=== PATIENT | male | born 1980 | race Caucasian/White ===

== ENCOUNTER → 2018-09-14 | Outpatient (CLI) | payer SELFPAY ==
--- NOTE | 2018-09-14 11:55 | CONS ---
CONSULTATION DATE OF SERVICE: 09/14/2018 A 38-year-old gentleman has been evaluated in sleep center for possible obstructive sleep apnea-hypopnea syndrome. HISTORY OF PRESENT ILLNESS/SLEEP-WAKE EVALUATION: Patient usual sleep schedule basically 7 days a week from midnight until 8 a.m. No problems with falling asleep. No TV in bedroom. Patient usually sleeps on the side position with his with very loud snoring, witnessed episodes of stopped breathing during the sleep and multiple awakenings from sleep around 8 times with 8 episodes of nocturia, dry mouth, sweating, heartburn. In the morning, patient wakes up tired, has difficulties to pay attention, falling asleep during the day, has problems with memory, concentration, irritability, depression, anxiety, sexual dysfunction. [place] Sleepiness Scale significantly increased to 16. No history of hypnagogic hallucinations, sleep paralysis or cataplexy. PAST MEDICAL HISTORY: Positive for hypertension, cardiac arrhythmia during stress test, depression, diabetes mellitus, sinus problems. PAST SURGICAL HISTORY: Sinus surgery in 2000. MEDICATIONS: Tenormin, amlodipine, benazepril, Wellbutrin, Janumet XR. SOCIAL HISTORY: Negative for smoking. Alcohol consumption rarely. FAMILY HISTORY: Hypertension, heart problems, arthritis, asthma, sinus problems, bronchitis, sleep apnea, snoring, headaches, narcolepsy, diabetes, nasal polyps, during sleep, mental illness. REVIEW OF SYSTEMS: Multiple awakenings from sleep, significant excessive daytime sleepiness. PHYSICAL EXAMINATION: During physical exam, gentleman without distress. VITAL SIGNS: BP 188/82, HR 90, RR 20, height 6 feet and 1/2 inch, weight 459 pounds, body mass index 61.3, temperature 98.1, oxygen saturation at room air 98%. HEENT: PERRLA, EOMI. Oropharynx extremely low position of soft palate. Mallampati 4. NECK: Wide neck 23-1/2 inches in circumference. LUNGS:Clear to percussion and to auscultation. Good air exchange. No wheezing or rhonchi. HEART: S1, S2 regular. No murmurs, gallops, or rubs. ABDOMEN: Obese. EXTREMITIES: No clubbing or cyanosis. [employer]: Awake, alert, and oriented X3. Cranial nerves 2 to 7 intact. There is no fasciculation or atrophy. noted. No focal deficits observed. IMPRESSION: 1. Loud snoring, witnessed episodes of stopped breathing during the sleep, extremely low position of soft palate, wide neck, sleepiness, [place] Sleepiness Scale 16; obstructive sleep apnea-hypopnea syndrome. 2. Morbid obesity, body mass index 61.3. 3. Hypertension. 4. History of cardiac arrhythmia. 5. Depression. 6. History of diabetes mellitus. 7. History of sinus problems, status post sinus surgery. PLAN: 1. Polysomnography for evaluation of patient's breathing during sleep. 2. CPAP/BiPAP titration if sleep study confirms obstructive sleep apnea-hypopnea syndrome. 3. Preferable position during sleep on the side. 4. No driving if patient feels any sleepiness. 5. I will see patient for follow up visit to explain results of testing and following plan. Thank you very much for referring this patient for consultation. Sincerely, Xavi Marsh MD, PhD, FAASM Diplomat of [place] [employer] [place] [employer] Outside Collector of [facility] [place] MMODL / [place]: [id number] /
== END ==
LOC: SLEEP 10:05
PROVIDERS: ATTEND Internal Medicine
DX: G47.33 Obstructive sleep apnea (adult) (pediatric) (principal); E66.01 Morbid (severe) obesity due to excess calories; I10 Essential (primary) hypertension; F32.9 Major depressive disorder, single episode, unspecified; E11.9 Type 2 diabetes mellitus without complications; Z86.79 Personal history of other diseases of the circulatory system; Z98.890 Other specified postprocedural states; Z99.89 Dependence on other enabling machines and devices; Z68.44 Body mass index [BMI] 60.0-69.9, adult; Z79.899 Other long term (current) drug therapy
CPT/HCPCS: 99211